=== PATIENT | female | born 1955 | race Caucasian/White ===

== ENCOUNTER 2017-01-12 21:52 | Emergency (ER) | payer OTHER ==
[~2017-01-12 21:52] MED LIST: ACIPHEX20 MG PO; ALPRAZOLAM0.5 M3 PO; AZO URINARY P97.5 MG PO; AZO URINARY TR1 EACH PO; COLACE100 M1 PO; CULTURELLE1 EAC1 PO; DULOXETINE HCL60 M1 PO; FIORINAL CAPSUL1 CAP PO; GARCINIA CAMBO1 EAC1 PO; HUMALOG KW200 UNIT/1 SC; HUMALOG100 UNIT/2; LANTUS SOL100 UNIT/1 SQ; LANTUS100 U/ML SC; LANTUS100 UNITS/ SC; LASIX40 MG PO; LEVAQUIN750 M1 PO; LEXAPRO10 MG PO; LIPITOR10 MG PO; MIDODRINE HCL10 M1 PO; NEXIUM40 M1 PO; NOVOLOG100 UNIT/1 SQ; PREMARIN0.3 MG PO; PYRIDOSTIGMINE60 M2 PO; SLEEP AID PO; TRAMADOL HCL E200 M1 PO; ZOFRAN8 M1 PO
[2017-01-12 22:28] LABS: BASO % 0.2 % (0-2); EOS % 1.4 % (0-7); EOSINOPHIL ABSOLUTE COUNT 0.1 tho/cmm (0.0-0.7); HCT-HEMATOCRIT 34.4 % (34.0-49.0); HGB-HEMOGLOBIN 11.1 gm/dl (12.0-15.5); IMMATURE GRANULOCYTES ABSOLUTE 0.02 tho/cmm (0-0.03); IMMATURE GRANULOCYTES PERCENT 0.2 % (0-0.3); LYMPH % 21.1 % (20-45); LYMPH ABSOLUTE COUNT 1.9 tho/cmm (0.8-4.5); MCH (MEAN CORPUSCULAR HGB) 30.6 pg (28.0-32.0); MCHC MEAN CORPUSCULAR HGB CONC 32.3 % (32.0-36.0); MCV (MEAN CELL VOLUME) 94.8 fl (82.0-96.0); MEAN PLATELET VOLUME 9.4 cmc (9.4-12.4); MONO % 6.2 % (0-12); MONOCYTE ABSOLUTE COUNT 0.6 tho/cmm (0.0-1.2); NEUTROPHIL ABSOLUTE COUNT 6.4 tho/cmm (1.6-8.0); NEUTROPHIL-AUTOMATED 6.4 tho/cmm (1.6-8.0); NEUTROPHILS % 70.9 % (40-80); PLATELET COUNT 274 tho/cmm (150-450); RED BLOOD COUNT 3.63 mil/cmm (4.00-5.20); RED CELL DISTRIBUTION WIDTH 12.4 % (12.4-16.4); WHITE BLOOD COUNT 9.1 tho/cmm (4.0-10.0)
[2017-01-12] MEDS ORDERED: FLUDROCORTISON0.1 M1 PO (22:40)
[2017-01-12] MEDS ORDERED: TOUJEO SOL300 UNIT/1 (22:40)
[2017-01-12 22:41] LABS: ANION GAP 13 mmol/L (0-20); BLOOD UREA NITROGEN 37 mg/dl (6-24); CALCIUM 9.2 mg/dl (8.5-10.5); CARBON DIOXIDE-VENOUS 23 mmol/L (22-32); CHLORIDE 107 mmol/l (96-110); CREATININE 1.37 mg/dl (0.50-1.10); GLUCOSE 169 mg/dL (70-110); POTASSIUM 3.6 mmol/L (3.7-5.1); SODIUM 139 mmol/L (135-145); eGFR VALUE FOR BLACK 47 mL/Min
== END 2017-01-12 23:32 ==
LOC: EDMED 21:52
PROVIDERS: Emergency Medicine
DX: E10.649 Type 1 diabetes mellitus with hypoglycemia without coma (principal); Z88.2 Allergy status to sulfonamides